=== PATIENT | male | born 1960 | race Caucasian/White ===

== ENCOUNTER 2018-02-13 22:36 | Inpatient (IN) | payer OTHER ==
[~2018-02-13] VITALS: Ht 193 cm; Wt 84.5 kg
[~2018-02-13 22:36] MED LIST: ADVIL PM CAPLE1 EACH PO; DEXAMETHASONE4 MG PO; IBUPROFEN600 MG PO; MAPAP325 MG PO; MOVANTIK12.5 MG; MOVANTIK25 MG PO; NEXIUM40 MG PO; OXYCODONE HCL E20 MG PO; OXYCODONE HCL E80 MG PO; OXYCODONE HCL30 MG PO; OXYCONTIN60 MG PO; SKELAXIN800 MG PO; STOOL SOFTENER1 EAC3 PO; TOPROL XL50 MG PO
--- NOTE | 2018-02-14 00:37 | NUR ---
PT ARRIVED TO ROOM 108 FROM ED. PT ABLE TO TRANSFER OVER TO THE HOSPITAL BED BY SELF. PT AND DAUGHTER WITH PT. PT HOLDING HIS LEFT SIDE OF HEAD HE GOT INTO BED.
--- NOTE | 2018-02-14 00:50 | NUR ---
PT ASSESSMENT COMPLETE. PT'S FAMILY IN ROOM COMPLETING HISTORY WITH SASH INSTALLER. PT RATING PAIN 7/10 TO HEAD/NECK/JAW. PRN PAIN MEDICATION TO BE ADMINISTERED. PT DENIES NAUSEA OR SOB. PT L EAR MISSING, SCAR TO L SIDE OF HEAD. OXYMASK IN PLACE FOR DESATURATIONS IN ED SECONDARY TO DILAUDID IV ADMINISTRATION PER RN. RASH NOTED TO BACK, PER PT DAUGHTER THIS RASH INITIATED FOLLOWING RADIATION IN 2018. PT PROVIDED WITH TISSUES, WATER, GARBAGE BAG. GARBAGE CAN PLACED NEXT TO BED PER PT REQUEST. PT DENIES FURTHER NEEDS AT THIS TIME. PT DOES NOT WISH TO TAKE HIS PANTS OFF AT THIS TIME. CALL LIGHT WITHIN REACH. PT EDUCATED REGARDING CALL LIGHT USE. UNDERSTANDING STATED.
--- NOTE | 2018-02-14 01:07 | NUR ---
provided patient with prn oxy for pain in head/face 08/17. Dr. Marina in room to assess patient.
--- NOTE | 2018-02-14 01:27 | NUR ---
in room discussing poc with pt. pt requests additional pain medication for 8/10 pain to face/neck/jaw. prn iv dilaudid administered. pt denies further needs at this time. call light within reach.
--- NOTE | 2018-02-14 02:25 | NUR ---
FENTANYL PATCH APPLIED ORDERED. PT STATES THAT PAIN IS WELL CONTROLLED AT THIS TIME. URINAL PROVIDED TO PT. EDUCATION REINFORCED REGARDING CALLING FOR ASSISTANCE IF PT WOULD LIKE TO GET UP TO USE THE BATHROOM. PT STATES UNDERSTANDING. CALL LIGHT WITHIN REACH.
--- NOTE | 2018-02-14 04:23 | NUR ---
medicated with dilaudid 1mg iv c/o face/jaw area. Pt awake, sitting up in bed
--- NOTE | 2018-02-14 05:06 | NUR ---
PT ASSESSMENT COMPLETE. PT RATES PAIN 5/10 AFTER PRN DILAUDID ADMINISTRATION. PT HANGING LLE OVER EDGE OF BED, STATES IT HELPS WITH SCIATIC PAIN. ENCOURAGED PT TO GET UP TO VOID WHILE ASSISTANCE IN ROOM. PT STATES "I ALREADY WENT". EDUCATION REINFORCED ON SAFETY, FALL PREVENTION, CALL LIGHT USE. PT STATES UNDERSTANDING. BED ALARM ACTIVATED AT THIS TIME. CALL LIGHT WITHIN REACH.
--- NOTE | 2018-02-14 08:02 | NUR ---
PT SITTING UP IN BED AWAKE. ASSISTED TO ORDER BREAKFAST. RATING LEFT SIDE OF HEAD/NECK/JAW 7/10 PAIN. MEDICATED WITH SCHEDULED OXYCONTIN. DENIES NAUSA OR OTHER CONCERNS. ALERT AND ORIENTED TO ALL. ASSESSEMENT COMPLETED. IV SL, FLUSHES WELL, DRESSING CDI. CALL LIGHT WITHIN REACH.
--- NOTE | 2018-02-14 09:50 | NUR ---
SPOKE WITH PATIENT, HIS AND DAUGHTER IN ROOM. PATIENT HAS NO AMBULATIONS ISSUES. THEY ALL INTEND FOR PATIENT TO RETURN HOME AT DISCHARGE. THEY KNOW OF NO BARRIERS TO SAFE DISCHARGE HOME. DISCUSSED PAIN MEDICATIONS AND WEAKNESS OR DIZZINESS AND POSSIBLY BEING OPEN TO CANE OR WALKER AT HOME. STATES THEY WILL GET A CANE. DISCUSSED TO BE SURE TO UNDERSTAND MEDS, SIDE EFFECTS AND ASK ANY QUESTIONS BEFORE DISCHARGE. WILL FOLLOW NEEDED.
--- NOTE | 2018-02-14 10:30 | NUR ---
PT MEDICATE WITH PO DILAUDID IN ADDITION TO IV DILAUDID PT REPORTS THAT HE IS CONT TO HAVE 7/10 PAIN. ATE VERY LITTLE OF BREAKFAST "BECAUSE IT HURTS TOO MUCH TO EAT." CALL LIGHT WITHIN REACH. AT BEDSIDE.
--- NOTE | 2018-02-14 11:36 | NUR ---
PT REPORTS "QUEEZINESS". MEDICATED WITH PRN IV ZOFRAN. PT SITTING UP IN BED WITH AT BEDSIDE. CALL LIGHT WITHIN REACH.
--- NOTE | 2018-02-14 12:16 | NUR ---
Patient has been awake and visting with family, call light in reach and fresh water given, refused a shower,
--- NOTE | 2018-02-14 12:45 | NUR ---
PT SITTING UP IN BED,PILLOW AROUND NECK-FAMILY AT BEDSIDE. PT VISIBLY IN PAIN AND MENTIONED THAT PAIN IS AN 8. DAUGHTER SHOWS GREAT CONCERN, PT ASKED THAT IF HE IS STILL HERE TODAY, HE WOULD LIKE THE COUNTER FORMER TO STOP BY. SHARED THIS WITH MIRIAN BAILON TO PASS ON. SHARED WITH JUAN MANUEL LOO REGARDING PT'S PAIN. I ALSO EXTENDED A BLESSING, WILL FOLLOW NEEDED
--- NOTE | 2018-02-14 13:15 | NUR ---
PT SITTING UP IN BED, DRINKING ENSURE. PT REPORTS NAUSEA RESOLVED. AT BEDSIDE. CALL LIGHT WITHIN REACH.
--- NOTE | 2018-02-14 14:16 | NUR ---
SPECIAL MACHINE OPERATOR IN TAKING VS, PT SITTING UP IN BED, PAIN BETTER-DOWN TO 5. TERRELL IN RM, FEELING BETTER ABOUT HIS PAIN CONTROL NOW. SHE MENTIONED THAT FR BHANDARI CAME BY, THAT SEEMED TO BE GOOD FOR THEM. WILL FOLLOW NEEDED
--- NOTE | 2018-02-14 14:20 | NUR ---
PT SLEEPING SOUNDLY. RESP EVEN AND UNLABORED. O2 SAT 94% ON RA. CALL LIGHT WITHIN REACH.
--- NOTE | 2018-02-14 14:46 | NUR ---
ACCESSED PORT PER JUAN MANUEL LOO REQUEST. USED STERILE TECHNIQUE AND PLACED WINDOW DRESSING ON IT. PT TOLERATED FAIRLY WELL, USED ETHYL-SPRAY TO NUMB SKIN. SALDANA BLOOD RETURN AND FLUSHES WELL. FLUSHED WITH 10ML NS.
--- NOTE | 2018-02-14 15:00 | NUR ---
RIGHT CHEST PORT ACCESSED BY VERONIQUE Castillo RN. FLUSHES WELL, GOOD BLOOD RETURN. DRESSING CDI. IV IN RIGHT HAND DC'D AT THIS TIME IT WAS VERY PAINFUL DURING FLUSHING. SITE WNL, CATH TIP INTACT. PT SITTING UP IN BED VISITING WITH . GIVEN FRESH ICE WATER. CALL LIGHT WITHIN REACH.
--- NOTE | 2018-02-14 17:35 | NUR ---
PT SITTING UP IN RECLINER UPON THIS RN ENTERING ROOM. TOOK A COUPLE BITES OF DINNER BUT STATES HE WOULDN'T BE ABLE TO EAT IT D/T THROAT PAIN. PT REPORTS TROUBLE SWALLOWING WITH THROAT PAIN, HACKING UP MUCOUS FREQUENTLY AND SPITTING IT OUT. GIVEN CEPOCOL LOZENGE AND MOUTHWASH PER PT REQUEST. PT ASSISTED BACK TO BED AND CHANGED FROM [facility] INTO HOSPITAL PJ PANTS. PT REPORTS HEAD, NECK, AND JAW PAIN 08/17, MEDICATED WITH 2MG IV DILAUDID ADMINISTERED THROUGH RIGHT CHEST PORT. PT GIVEN CLEAR ENSURE HE STATED THE REGULAR ENSURE WAS TOO THICK. AT BEDSIDE ASSISTING THIS RN WITH PT CARE, GETTING PT COMFORTABLE. SATTING 95% ON RA, CONT PULSE OX ON. CALL LIGHT WITHIN REACH.
--- NOTE | 2018-02-14 19:10 | NUR ---
BEDSIDE REPORT RECEIVED FROM OFFGOING RN. PAIN MEDICATINO BEING ADMINISTERED BY OFFGOING RN. PAIN MEDICATION SCHEDULE DISCUSSED WITH PT AND OFFGOING RN. PT STATES AGREEMENT WITH PLAN. DENIES FURTHER NEEDS AT THIS TIME. CALL LIGHT IN REACH. BED ALARM ACTIVE.
--- NOTE | 2018-02-14 19:16 | NUR ---
PT MEDICATED WITH IV DILAUDID PER REQUEST. SITTING UP IN BED DROWSY. REPORTS THAT CEPOCOL LOZENGE HELPED WITH SORE THROAT. BED ALARM ON. CALL LIGHT WITHIN REACH.
--- NOTE | 2018-02-14 19:20 | NUR ---
PT'S DAUGHTER IN ROOM TO SEE PT. BED ALARM DEACTIVATED.
--- NOTE | 2018-02-14 20:05 | NUR ---
PT UTILIZES CALL LIGHT, REQUESTING PRN PAIN MEDCIATION FOR 7/10 PAIN "TIGHTNESS" TO HEAD/NECK/JAW. PT HOLDING L NECK WHERE PAIN IS LOCATED. PT STATES "I JUST WANT TO GET SOME RELIEF". PRN PO DILAUDID ADMINISTERED. PT ASSESSMENT COMPLETE. CPOX IN PLACE. PT USING OXYMASK PRN. PT DENIES SOB OR [place]. PT ENCOURAGED TO CALL FOR ASSISTANCE GETTING OOB IF NEEDED. PT AGREES. PT DENIES FURTHER NEEDS AT THIS TIME. CALL LIGHT IN REACH. BED ALARM ACTIVATED.
--- NOTE | 2018-02-14 21:30 | NUR ---
PT UTILIZES CALL LIGHT, REQUESTS PRN PAIN MEDICATION. PT RATES PAIN 7/10 TO HEAD/NECK/JAW. STATES "IT'S PRETTY TIGHT". PT STATES TAHT PO DILAUDID HELPED "SOME". ICE/WARM COMPRESS PROVIDED. PT STATES, "I'LL TRY ANYTHING ONCE". 02 DECERASES TO 87% AFTER DILAUDID ADMINISTRATION. PT USING O2 APPROPRIATELY. DENIES FURTHER NEEDS AT THIS TIME. CALL LIGHT WITHIN REACH. BED ALARM ACTIVE.
--- NOTE | 2018-02-14 23:40 | NUR ---
PT REQUESTING ADDITIONAL PAIN MEDICATION. PT CONTINUES TO RATE PAIN /, DESCRIBES "TIGHTNESS". PT STATES HE HAS BEEN UNABLE TO SLEEP FOR MORE THAN "10 OR SO MINUTES AT A TIME". PT DENIES FURTHER NEEDS AT THIS TIME. CALL LIGHT WITHIN REACH. BED ALARM ACTIVE.
--- NOTE | 2018-02-15 00:32 | NUR ---
PULP PLANT SUPERVISOR IN PT'S ROOM TO RE-EVAL PAIN, PT LYING BED AWAKE. PT STATES THAT HE IS STILL HAVING 7/10 PAIN TO L NECK/HEAD, HE DESCRIBES TIGHTNESS/PRESSURE. PT REQUESTS PRN PAIN MEDCIATION. PO DILAUDID ADMINISTERED. PT DENIES FURTHER NEEDS AT THIS TIME. CALL LIGHT WITHIN REACH. BED ALARM ACTIVE.
--- NOTE | 2018-02-15 01:58 | NUR ---
PT UTILIZES CALL LIGHT, REQUESTS PRN PAIN MEDICATION. PT RATES PAIN 8/10 TO L NECK, REPORTS TIGHTNESS. STATES THAT PAIN IS CURRENTLY GETTING WORSE. PRN IV DILAUDID ADMINISTERED. PT DENIES FURTHER NEEDS AT THIS TIME. CALL LIGHT WITHIN REACH.
--- NOTE | 2018-02-15 03:55 | NUR ---
PT ASSESSMENT COMPLETE. PT RATING PAIN 8/10 AFTER PRN IV DILAUDID ADMINISTRATION X 2 HOURS PRIOR. ADDITIONAL PRN DOSE ADMINISTERED. PT ATTEMPTING TO STRETCH HIS JAW. PT CONTINUES TO DESCRIBE PAIN "TIGHT". STATES HE FEELS THOUGH IT IS HARD TO SWALL. PT ASSESSMENT UNCHANGED FROM PRIOR ASSESSMENT. PT DENIES FURTHER NEEDS AT THIS TIME. CALL LIGHT WITHIN REACH.
--- NOTE | 2018-02-15 04:21 | NUR ---
PRN PO DILAUDID ADMINISTERED. PT STATES THAT IV DILAUDID BROUGHT PAIN DOWN TO 5/10 FOR SHORT WHILE, BUT PAIN IS NOW BACK UP TO 7/10. PT ATTEMPTS TO USE DIFFERENT PILLOW AND READJUST THE BED TO SEE IF THIS WILL HELP WITH COMFORT, STATES IT DOES NOT HELP. PT DECLINES FURTHER NEEDS AT THIS TIME. CALL LIGHT WITHIN REACH.
--- NOTE | 2018-02-15 06:07 | NUR ---
PT AWAKE MOST OF NIGHT. SLEPT IN 10 MINUTE INCREMENTS ACCORDING TO PT. PRN PAIN MEDICATION REQUIRED AROUND THE CLOCK. LOWEST PAIN RATING 5/10, HIGHEST 8/10 TO NECK/HEAD/JAW. PT DESCRIBES TIGHTNESS. HEAT/ICE APPLICATION AND REPOSITIONING NOT EFFECTIVE IN RELIEVING PAIN S/SX. O2 PRN. CPOX IN PLACE. LOW URINE OUTPUT. INTAKE MINIMAL. PORT ACCESSED, HEP LOCKED. 1 PA.
--- NOTE | 2018-02-15 08:30 | NUR ---
ATTEMPTED TO DRAW BLOOD FROM RIGHT CHEST PORT, UNABLE TO GET BLOOD RETURN. HAD PT REPOSITION MULTIPLE TIMES, STAND UP, LIE DOWN, RAISE RIGHT ARM ABOVE HEAD ETC. WITH NO SUCCESS. HAD VERONIQUE CHARGE NURSE ALSO ASSESS SITE. DRESSING TAKEN DOWN AND ATTEMPTED TO REPOSITION VILLEGAS NEEDLE. REDRESSED WITH STERILE DRESSING. NOTIFIED DR. MAYFIELD TO RECIEVE ORDER FOR ALTEPLASE. PORT CONT TO FLUSH WELL BUT WILL NOT GIVE BLOOD RETURN. ABLE TO ADMINISTER IV DILAUDID AND LR BOLUS. NO SIGNS OF INFILTRATION NOTED.
--- NOTE | 2018-02-15 10:35 | NUR ---
PT MEDICATED WITH 2MG IV DILAUDID. CONSISTENTLY RATES PAIN 5-8/10. SITTING UP IN BED WITH EYES CLOSED, FACIAL GRIMACE. PT REPORTED THAT HE DIDN'T FEEL HUNGRY FOR BREAKFAST. DRINKING CLEAR ENSURE. DENIES NAUSEA OR SOB. STILL REPORTS THROAT DISCOMFORT, USING CEPACOL LOZENGES NEEDED. HACKING UP GREEN MODERATE AMOUNT OF GREEN MUCOUS AND SPITTING INTO A CUP. PT ALERT AND ORIENTED. CALL LIGHT WITHIN REACH.
--- NOTE | 2018-02-15 11:00 | NUR ---
FIRST DOSE OF ALTEPLASE ADMINISTERED. WILL REASSESS IN 30 MIN. PT SITTING UP IN BED RESTING WITH EYES CLOSED. DENIES NEEDS OR CONCERNS AT THIS TIME. CALL LIGHT WITHIN REACH.
--- NOTE | 2018-02-15 11:34 | NUR ---
UNABLE TO DRAW BLOOD FROM RIGHT CHEST IMPLANTED PORT AFTER 30 MIN OF ALTEPLACE ADMINISTRATION. WILL REASSESS IN 90 MIN. CALL LIGHT WITHIN REACH.
--- NOTE | 2018-02-15 11:43 | NUR ---
PT SITTING UP IN BED, TERRELL AT HIS SIDE. PAIN ON UPSWING, IV ALARM SOUNDING. PT ACCEPTED PRAYER SHAWL, HAD PRAYER WITH BOTH. GOOD VISIT, WILL FOLLOW NEEDED
--- NOTE | 2018-02-15 13:20 | NUR ---
STILL UNABLE TO DRAW BLOOD AFTER 2 HOURS OF ALTEPLASE ADMINISTRATION. RECIEVED ASSITANCE FROM [facility] NURSE WHO REPOSITIONED NEEDLE AND WAS ABLE TO OBTAIN GOOD BLOOD RETURN. SITE REDRESSED WITH STERILE TECHNIQUE. PORT NOW FLUSHING WELL WITH GOOD BLOOD RETURN. PT ATTEMPTED TO EAT SOME LUNCH BUT BECAME NAUSEATED. JUST TAKING SIPS OF WATER AND ENSURE. CALL LIGHT WITHIN REACH.
--- NOTE | 2018-02-15 14:12 | NUR ---
PATIENT IN PAIN ON LEFT SIDE OF NECK/FACE. HURTS TO EAT. DRINKS 3 ENSURES A DAY. ON A REGULAR DIET. WILL CONTINUE TO MONITOR.
--- NOTE | 2018-02-15 15:15 | NUR ---
PT MEDICATED WITH IV DILAUDID FOR 7/10 LEFT HEAD/NECK/JAW PAIN. PORT CONT TO FUNCTION WELL. CONT FLUIDS RUNNING WNL. DENIES OTHER NEEDS AT THIS TIME. CALL LIGHT WITHIN REACH.
--- NOTE | 2018-02-15 16:16 | NUR ---
MED REC COMPLETE
--- NOTE | 2018-02-15 16:38 | NUR ---
PT UP TO RESTROOM TO TAKE "BED BATH" WITH ASSISTANCE FROM . PO DILAUDID ADMINISTERED. LINENS CHANGED AND NEW GOWN.
--- NOTE | 2018-02-15 19:00 | NUR ---
RECEIVED PATIENT REPORT FROM JUAN MANUEL LOO. PATIENT JUST GOT 3MG IV DILAUDID FOR 7/10 PAIN. PATIENT'S DAUGHTER AT BED SIDE. WILL BE BACK TO PERFORM ASSESSMENT.
--- NOTE | 2018-02-15 21:15 | NUR ---
PATIENT HAVING 6-7/10 HEAD/JAW AND NECK PAIN. RIGHTCHEST PORT FLUSHED WITH SALINE ANDHEPARIN AND GIVEN 3ML IV DILAUDID. 7PM BROUGHT HIS PAIN DOWN TO ABOUT A 5 FOR AWHILE. SATS REMAIN 92-93% ON ROOM AIR WITH A HEART RATE OF 78. PATIENT'S WATER FULL. CALLLIGHT IN REACH. NO THER NEEDS AT THIS TIME.
--- NOTE | 2018-02-15 23:00 | NUR ---
PATIENT'S PAIN IS 6/10 AT THIS TIME. 3MG IV DILAUDID GIVEN.PATIENT HAS NOT NEEDED ANY PRN PO DILAUDID OF YET. HR AND SATS EMAIN STABLE. PATIENT GOING TO TRY AND GET SOME MORE SLEEP.
--- NOTE | 2018-02-15 23:58 | NUR ---
V/S AND I&O DONE AND CHARTED. PATIENT DID NOT ABLE TO SAVE HIS VOIDINGS HE STATED THAT HAS TO GO RIGHT AWAY, NO TIME TO USE THE URINAL..AND FLUSHES THE TOILET.
--- NOTE | 2018-02-16 00:05 | NUR ---
PATIENT RESTING QUIETLY, RESPIRATIONS REGULAR AND EVEN AT A RATE OF 18, EYES CLOSED AND SITTING IN BED IN A HIGH FOWLERS POSITION. HR AND O2 SATS REMAIN STABLE.
--- NOTE | 2018-02-16 01:05 | NUR ---
PATIENT'S HEAD PAIN IS DOING BETTER, 5/10 AT THIS TIME. ANOTHER 3MG OF IV DILAUDID GIVEN. PATIENT HAS BEEN WATCHING TV, AND IS GOING TO TRY AND GET SOME SLEEP NOW.
--- NOTE | 2018-02-16 03:05 | NUR ---
CHECKED IN WITH PATIENT AND HIS PAIN IN HEAD,NECK, AND JAW IS CURRENTLY AT A 6/10. HE SAYS HE HAS HAD TROUBLE TRYING TO FIND A COMFORTABLE POSITION TO LAY IN BED. 3MG IV DILAUDID GIVEN FOR HIS PAIN. SATS, HR, AND RESP RATE REMAIN STABLE.
--- NOTE | 2018-02-16 03:50 | NUR ---
PATIENT'S IV FLUID NEEDED CHANGED, PATIENT'S PAIN 5/10 WHICH IS AT HIS COMFORT LEVEL. WILL BE BACK TO SEE PATIENT AT 5AM UNLESS HE CALLS.
--- NOTE | 2018-02-16 05:15 | NUR ---
ENTERED PATIENT'S ROOM AND HIS EYES WERE CLOSED, BUT HE OPENED THEM SHORTLY AFTER I ENETERED THE ROOM. PAIN IS 5/10 AT THIS TIME AND WE ARE SWITHCHING TO PO DILAUDID OF WHICH HE GOT 24MG PO. HE GOT THREE TABS DOWN WITH SOME DIFFICULTY AND DIDN'T GET THE OTHER TABS DOWN UNTIL AFTER HE GOT HIS IV DEX. VS HAVE REMAINED STABLE THROUGH THE NIGHT.
--- NOTE | 2018-02-16 06:45 | NUR ---
PATIENT'S PAIN HAS BEEN FAIRLY WELL CONTROLLED THROUGH THE NIGHT. LAST DOSE WAS 24MG PO AND IT IS HOLDING HIS PAIN AT ABOUT A 5/10 WHICH HE IS COMFORTABLE WITH AT THIS TIME.
--- NOTE | 2018-02-16 07:46 | NUR ---
BEDSIDE REPORT RECEIVED FROM JESUS ZAMBRANO. WHITE BOARD UPDATED. WILL CONTINUE TO GIVE PAIN MEDS ORDERED AND NEEDED. CLEARED IV PUMP. D5LR @ 125 INFUSING. FENTANYL PATCHES ON BACK PER PATIENT REPORT.
--- NOTE | 2018-02-16 08:12 | NUR ---
DISCUSSED WITH PATIENT AND ABOUT KNOWN PLAN FOR CADD PUMP BASED ON PROGRESS NOTE FROM DR MAYFIELD ON 02/15/18. 24MG PO DILAUID PROVIDED AT 0800.
--- NOTE | 2018-02-16 10:13 | NUR ---
VS AND I&O'S TAKEN AND DOCUMENTED. PT HAS NO NEEDS AT THIS TIME. PT IS AWARE TO CALL IF HE NEEDS ANYTHING. CALL LIGHT IS IN REACH.
--- NOTE | 2018-02-16 10:30 | NUR ---
SPOKE WITH JIMMY AT [facility] [phone] (FAX [phone]) WHO IS REQUESTING UPDATED CLINICALS. DISCUSSED WITH HER THAT PLAN IS FOR PATIENT TO BE DISCHARGED WITH POSSIBLE CAD PUMP FOR PAIN MEDICATIONS. SHE WILL HAVE ONE OF THE [facility] CALL US.
--- NOTE | 2018-02-16 11:19 | NUR ---
PATIENT C/O JAW AND NECK PAIN. PROVIDED HOT AND COLD PACK. STAYING ON AN EVERY 3 HOUR SCHEDULE WITH ORAL DILAUDID AND USING IV DILAUDID FOR BREAKTHROUGH PAIN. PAIN CONTROLLED AT 5/10-- PATIENT'S COMFORTABLE LEVEL.
--- NOTE | 2018-02-16 11:20 | NUR ---
SPOKE WITH SHARRON [employer] [phone]. DISCUSSED NEEDING AUTHORIZATION FOR POSSIBLE PAIN PUMP NEED AFTER DISCHARGE. SHE WILL RESEARCH AND RETURN A CALL TO GIVE US INFORMATION ON WHO TO CONTACT TO SET THIS UP.
--- NOTE | 2018-02-16 13:10 | NUR ---
RECEIVED A PHONE CALL FROM [employer] [employer] WHO STATES TO USE A HOME HEALTH AGENCY, NAMING [facility] THEY WILL COVER. OTHER CHOICE IS ONE OUT OF [place] OR [facility] BOTH OF WHICH DO NOT SEE PATIENTS IN THIS AREA.
--- NOTE | 2018-02-16 13:20 | NUR ---
SPOKE WITH STEPHANE AT [facility]. SHE STATES SHE WILL DISCUSS WITH STAFF AND LET US KNOW IF THEY CAN COVER THIS NEED IN HOME HEALTH.
--- NOTE | 2018-02-16 13:33 | NUR ---
PT SITTING IN BED, FEELING BETTER THAN YESTERDAY. WHILE I WAS THERE, HE STATED THAT PAIN AND STIFFNESS WAS STARTING TO BUILD IN HIS NECK AND ALERTED THE RN. I EXTENDED A BLESSING, WILL FOLLOW NEEDED
--- NOTE | 2018-02-16 14:00 | NUR ---
RECEIVED A CALL FROM STEPHANE [facility] WHO STATES THEY CAN SEE THE PATIENT AT HIS HOME. THEY STATE TO SET UP THE PUMP WITH AN INFUSION COMPANY, THEY WILL NEED PARAMETERS FOR THE MEDICATION, AND IT MUST GO IN A PICC, PORT OR SUBCUTANEOUS ROUTE. CALLED [facility] AGAIN AND SPOKE WITH SHARRON REGARDING WHICH INFUSION COMPANY TO USE. SHE WILL LOOK INTO THIS AND CALL BACK.
--- NOTE | 2018-02-16 20:08 | NUR ---
PATIENT VS STABLE, NECK AND JAW PAIN IS 6/10. 4MG PO DILAUDID X6 TABS =24MG GIVEN FOR PAIN.
--- NOTE | 2018-02-16 22:16 | NUR ---
PATIENT'S PO MEDS AR NOT HOLDING HIS PAIN. CURRENT PAIN 8/10. PATIENT GIVEN 3MG IV DILAUDID FOR BREAK THROUGH PAIN. 4MG IV DEX ALSO GIVEN AND PORT HEPARIN FLUSHED PER PROTOCOL.
--- NOTE | 2018-02-16 22:46 | NUR ---
ROUNDED CHARGE. JUAN MANUEL LEE IN THE ROOM. PATIENT DENIES ANY NEEDS AT THIS TIME. CALL LIGHT IN REACH.
--- NOTE | 2018-02-16 23:26 | NUR ---
PATIENT'S PAIN HAS ONLY DECREASED TO 7/10 SO PATIENT'S 24MG PO DILAUDID GIVEN. PATIENT'S VS REMAIN STABLE. PATIENT GOING TO TRY AND SLEEP.
--- NOTE | 2018-02-17 01:19 | NUR ---
PATIENT RESTING QUIETLY IN HIGH FOWLERS POSITION EYES CLOSED RESPIRATIONS REGULAR AND EVEN. PULSE 54 AND O2 SATS 95% ON PULSE OX. CALL LIGHT IN REACH.
--- NOTE | 2018-02-17 02:49 | NUR ---
PATIENT AWAKE AND JAW/NECK PAIN ARE BACK TO 8/10 AND 24 MG PO DILAUDID GIVEN. AND ASSESSMENT COMPLETE.
--- NOTE | 2018-02-17 05:02 | NUR ---
PATIENT'S PAIN IS BOTHERING HIM 07/18 AND NOT DUE FOR PO MEDS YET. HE HAS HAD A HARD TIME GETTING COMFORTABLE AND WANTS SOME MORE PAIN CONTROL UNTIL HE CAN HAVE HIS NEXT PO DOSE. 3MG IV DILAUDID GIVEN. PATIENT GOING TO TRY AND REST NOW.
--- NOTE | 2018-02-17 05:55 | NUR ---
PATIENT'S PAIN AT 5/10 AND SAYS THIS HAS BEEN THE BEST HE HAS FELT FOR DAYS. 24MG PO DILAUDID GIVEN AND 4MG IV DEXAMETHASONE GIVEN AND PATIENT IS GOING TO TRY AND REST UNTIL HIS DAUGHTER COMES IN TO VISIT THIS MORNING. PATIENT'S PAIN HAS BEEN FAIRLY WELL CONTROLLED THROUGH THE NIGHT WITH PO PAIN MEDS WITH ONLY A COUPLE DOSES OF IV MEDS NEEDED FOR BREAKTHROUGH PAIN.
--- NOTE | 2018-02-17 07:10 | NUR ---
REPORT RECEIVED FROM JUAN MANUEL LEE. PT AWAKE AND FINSHING BREAKFAST FROM [facility], BROUGHT IN BY DAUGHTER. PT REPORTS 5/10 PAIN THAT IS TOLEARBLE AT THIS TIME. BED RAILS UP. CALL LIGHT WITHIN REACH.
--- NOTE | 2018-02-17 09:17 | NUR ---
MORNING ASSESSMENT AND MEDICATIONS DUE. PT RESTING ON RIGHT SIDE IN BED. PT AWAKENS TO MOVEMENT IN ROOM. ASSESSMENT DONE. PT REPORTS 5/10 PAIN THAT "SEEMS BETTER." PT ALSO REPORTS "RACING HEART" AND ASKS ABOUT TAKING HIS METOPROLOL. MD NOTIFIED. MEDICATION GIVEN. NEW FENTANYL PATCHES APPLIED TO BACK, OLD PATCHES REMOVED. PULSE OX READING OVER 92% ON ROOM AIR, HR 78. PT VISITING WITH FAMILY. NO ADDITIONAL REQUESTS OR COMPLAINTS AT THIS TIME.
[2018-02-17] MEDS ORDERED: HYDROMORPH SUB-Q (10:13)
--- NOTE | 2018-02-17 10:25 | NUR ---
THIS RN TO ROOM TO CHECK ON PT. PT REPORTS ONGOING 5/10 PAIN AND REQUESTS PAIN MEDICATION. SEE MAR FOR MEDIATION GIVEN. PT ENCOURAGED TO WALK BUT STATES HE IS "TOO TIRED" AGREES TO WALK "MAYBE AFTER LUNCH. BED RAILS UP. CALL LIGHT WITHIN REACH. PULSE OX READS 94% ON ROOM AIR, HR = 68.
--- NOTE | 2018-02-17 12:05 | NUR ---
NOON ASSESSMENT AND MEDICATION DUE. THIS RN TO BEDSIDE. PT REPORTS 5/10 PAIN, SEE MAR FOR MEDICATION GIVEN. ASSESSMENT DONE. PULSE OX MAINTAINING ABOVE 92% ON ROOM AIR, HR = 72. PT UPDATED ON MD DECISION TO HOLD METOPROLOL, PT VERBALIZES UNDERSTANDING AND STATES HE AGREES. PORT ASSESSED, WNL, BRISK BLOOD RETURN NOTED. PORT HEPARIN LOCKED PER PROTOCOL FOR PT TO TAKE A SHOWER. PT UP TO SHOWER. PT DEMONSTRATES USE OF CALL LIGHT IN BATHROOM. NO ADDITIONAL REQUESTS OR COMPLAINTS AT THIS TIME.
--- NOTE | 2018-02-17 12:43 | NUR ---
PT SITTING IN BED, FEELING BETTER THAN PREVIOUS. STRUGGLED TO SLEEP LAST NIGHT BUT HAS BEEN ABLE TO NAP. 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 HE WANTS TO SEE HIS G.SON GROW UP AND BE APART OF HIS LIFE. SHARED SOME SCRIPTURE, GOOD VISIT. EXTENDED A BLESSING, WILL CONTINUE TO FOLLOW
--- NOTE | 2018-02-17 12:48 | NUR ---
FAXED TO [facility] [phone] SENT ORDER/FACE SHEET/ED REPORTS/H&P/PROG NOTES. FAX CONFIRMATION RECEIVED 02/17/18 1236PM.
--- NOTE | 2018-02-17 13:07 | NUR ---
THIS RN TO ROOM TO CHECK ON PT. PT FINISHED WITH SHOWER, UP TO CHAIR, EATING LUNCH. LINENS CHANGED. MD TO BEDSIDE FOR ROUNDS. PT REPORTS 5/10 PAIN, "BECAUSE I'M EATING AND IT HURTS MY JAW." PT DENIES NEED FOR ADDITIONAL PAIN MEDICATION AT THIS TIME. HEPARIN REMOVED FROM PORT, FLUIDS RESTARED, RATE CHANGED TO 75 ML/HR PER MD ORDER. PT ENCORUAGED TO AMBULATE. PT STATES HE WILL WALK "SOON." CALL LIGHT WITHIN REACH. BED RAILS UP.
--- NOTE | 2018-02-17 13:22 | NUR ---
PT UP TO AMBULATE IN [place]. AMBULATING INDEPENDANTLY, PT STEADY ON FEET AND DENIES DIZZINESS/LIGHTHEADEDNESS
--- NOTE | 2018-02-17 14:09 | NUR ---
THIS RN TO ROOM TO CHECK ON PT. PT DENIES NEED FOR ADDITIONAL PAIN MEDICAITON AT THIS TIME. PT UP IN ROOM AND STATES HE HAS NO REQUESTS OR COMPLAINTS AT THIS TIME. CALL LIGHT WITHIN REACH.
--- NOTE | 2018-02-17 14:52 | NUR ---
PT REQUESTS ADDITIONAL PAIN MEDICATION FOR 5/10 PAIN. SEE MAR FOR MEDICATION GIVEN. PT RESTING IN BED. AND PT UPDATED ON PLAN OF CARE. PT AND VERBALIZE UNDERSTANDING. PT STATES HE HAS NO ADDITIONAL REQUESTS OR COMPLAINTS AT THIS TIME. CALL LIGHT WITHIN REACH.
--- NOTE | 2018-02-17 16:04 | NUR ---
PATIENT SITTING IN CHAIR. MOSTLY INDEPENDENT IN ROOM. CALL LIGHT IN REACH. NO FURTHER NEEDS AT THIS TIME.
--- NOTE | 2018-02-17 16:05 | NUR ---
RECIEVED A CALL FROM AMANDA ZAMBRANO ON [facility], STATING THAT [facility] HAD CALLED AND SAID THEY WOULD BE COURRIERING THE PUMP HERE AND THEY ALSO HAVE BEEN TALKING TO HOME HEALTH FROM [facility]. AMANDA STATED THAT THEY SAID IT WOULD BE HOOKED UP TO HIS PORT. I CALLED [facility] TO CLARIFY THESE ORDERS, SPOKE WITH PHARMACIST FABIAN AND HE SAID HE NEEDED TO SPEAK TO DR MAYFIELD. TRANSFERRED PHONE CALL TO DR MAYFIELD. FAXED CHART NOTES INCLUDING ORDERS FOR THE CADD PUMP AND H AND P, PROG NOTES. SPOKE AGAIN WITH DR MAYFIELD AND ASKED IF HE COULD WRITE A FACE TO FACE AND HE STATED HE WOULD.
--- NOTE | 2018-02-17 16:31 | NUR ---
PT CALL LIGHT ON. PT REQUESTS PAIN MEDICATIO FOR 6/10 PAIN AND TIGHTNESS IN LEFT EAR/SIDE OF FACE. SEE MAR FOR MEDICATION GIVEN. ASSESSMENT DONE. PT ENCORUAGED TO ORDER DINNER. ENSURE MILKSHAKE PROVIDED. PT VISITING WITH FRIEND, NO ADDITIONAL REQUESTS OR COMPLAINTS. BED RAILS UP. CALL LIGHT WITHIN REACH.
--- NOTE | 2018-02-17 18:03 | NUR ---
COREMAKER FLOOR PAIN MEDICATION STARTED WITH DAVIN, PHARMACIST AT BEDSIDE TO CONFIRM OPPORATION AND DOESAGING. PT REPORTS 6/10 PAIN BEFORE PUMP IS STARTED. CONTINIOUS PULSE OX IN PLACE, O2 SATURATION AT 96% ON ROOM AIR. HR = 73. PT ASKS QUESTIONS OF THIS RN AND DAVIN, PHARMCIST. PT VERBALIZES UNDERSTANDING OF COREMAKER FLOOR AND HOW TO USE BOLUS DOESING BUTTON. FENTANYL PATCHES REMOVED. PT DEMONSTRATES UNDERSTANDING AND STATES ALL HIS QUESTIONS HAVE BEEN ANSWERED. CALL LIGTH WITHIN REACH. PT VISITING WITH FRIEND. NO ADDITIONAL REQUESTS OR COMPLAINTS AT THIS TIME. BED RAILS UP. CALL LIGHT WITHIN REACH.
--- NOTE | 2018-02-17 19:06 | NUR ---
PT HERE FOR PAIN CONTROL RELATED TO CANCER. PT HAS MINIMAL APPITITE AND EATS MOSTLY SOFT FOODS. PO INTAKE ENCORUAGED. PT AWAITING HOME BOOM TENDER PUMP, HOPING IT WILL ARRIVE TOMORROW. NEW BOOM TENDER PUMP PLACED TODAY. PT USING CORRECTLY WITH ADEQUATE PAIN CONTROL. O2 SATURATIONS ABOVE 92% ON ROOM AIR. VOIDING QUANTIY SUFFICIENT. PT USES CALL LIGHT APPROPRIATLY.
--- NOTE | 2018-02-17 19:14 | NUR ---
IN ROOM FOR REPORT, PT IS AWAKE IN BED. HE RATES PAIN AT 4/10 AT THIS TIME. HE DENIES NEEDS. CALL LIGHT IS WITHIN REACH.
--- NOTE | 2018-02-17 19:45 | NUR ---
PTS ARRIVED. UPDATED BY THIS RN. PTS AND STATE ALL THEIR QUESTIONS HAVE BEEN ANSWERED AT THIS TIME. RUSTAM RN TO ANSWER ADDITIONAL QUESTIONS THEY ARRISE. PT VISITING WITH . BED RAILS UP. CALL LIGHT WITHIN REACH.
--- NOTE | 2018-02-17 20:20 | NUR ---
IN ROOM TO ASSESS PT AND ADMINISTER MEDICATIONS. HE REPORTS PAIN CONTROLLED AND DENIES SYMPTOMS. HE SAYS HE IS GETTING TIRED. HE DENIES FURTHER NEEDS. AT THIS TIME. CALL LIGHT IS WITHIN REACH.
--- NOTE | 2018-02-17 20:47 | NUR ---
CHARGE NURSE ROUNDING NOTE: SITTING UP IN BED, CAD PUMP INFUSING DILAUDID SC, STATED GOOD TO FAIR PAIN RELIEF. IVF INFUSING, CALL LIGHT AND FLUIDS AT BEDSIDE, NO OTHER REQUESTS
--- NOTE | 2018-02-17 21:00 | NUR ---
SITTING UP IN BED, WATCHING NETFLIZ IN PERSONAL TABLET, DENIES C/O PAIN OR ADVERSE REACTION TO CAD PUMP SITE. CPOX IN PLACE SATS 91% ROOM AIR
--- NOTE | 2018-02-17 21:32 | NUR ---
*TOTAL OF 1.3 ML USED FROM SCIENCE JOB TITLES PUMP= 13MG OF HYDROMORPHONE. PT HAS ONLY PUSHED BUTTON ONCE SINCE SCIENCE JOB TITLES STARTED.
--- NOTE | 2018-02-17 22:10 | NUR ---
PT REPORTS PAIN / RR 16 AND CPOX HAS NOT ALARMED. PT DENIES NEEDS AT THIS TIME.
--- NOTE | 2018-02-17 22:10 | NUR ---
VITALS AND I&OS DONE AND CHARTED. PT NEEDS NOTHING AT THIS TIME. BEDSIDE TABLE AND CALL LIGHT IN REACH.
--- NOTE | 2018-02-17 23:07 | NUR ---
AWAKE, WATCHING NET[employer]IX, DENIES C/O PAIN 'MY PAIN IS GOOD' STATES, CPOX SATS 92%. SITTING UP IN BED, IVF INFUSING CAD PUMP IN PLACE WITH GOOD PAIN RELIEF
--- NOTE | 2018-02-18 00:18 | NUR ---
PT IS AWAKE IN BED, HE STATES HIS PAIN IS WELL CONTROLLED AT THIS TIME. HE DENIES NEEDS AND CALL LIGHT IS WITHIN REACH.
--- NOTE | 2018-02-18 02:00 | NUR ---
*TOTAL VOLUME IN EDUCATION TECHNICIAN PUMP 2.7 ML 27MG TOTAL. PT ONLY PUSHED BUTTON ONCE SINCE START OF EDUCATION TECHNICIAN WHICH WAS AROUND 1800 02/17/18.
--- NOTE | 2018-02-18 06:15 | NUR ---
PT IS AWAKE IN BED, HE DENIES NEEDS AT THIS TIME. CALL LIGHT IS CLOSE,
--- NOTE | 2018-02-18 07:15 | NUR ---
*TOTAL DILAUDID GIVEN SINCE COOK MAYONNAISE STARTED IS 4.3ML/43 MG TOTAL THROUGH THE NIGHT. PT STATES HE DID NOT PUSH BUTTON ANYMORE, JUST THE ONE TIME AT THE BEGINNING.
--- NOTE | 2018-02-18 08:00 | NUR ---
RECEIVED REPORT AT 0700, FOUND PT IN BED. PT HAD NO NEEDS OR CONCERNS AT THAT TIME.
--- NOTE | 2018-02-18 10:00 | NUR ---
PT IS IN BED WATCHING TV. NO NEW CONCERNS AT THIS TIME. PAIN IS 4/10 WHICH IS TOLERABLE FOR PT. CHEST PORT FLUSHES WDL, PT IS EATING SOFT FOODS.. ALL LOBES ARE CLEAR, V/S ARE WDL, NO EDEMA NOTED.
--- NOTE | 2018-02-18 12:00 | NUR ---
PT IS UP IN BED. LUNCH SHOULD BE HERE ANYTIME. PT IS AAO X4, PAIN IS WELL CONTROLLED. NO NEW CONCERNS NOTED AT THIS TIME.
--- NOTE | 2018-02-18 12:41 | NUR ---
PT SITTING UP IN BED, WATCHING TV. HE IS ALERT, ORIENTED AND APPEARS TO BE FEELING MUCH BETTER-BETTER PAIN CONTROL. PUMP WILL ARRIVE LATER THIS AFTER- NOON, WITH DC TO FOLLOW. PT REQUESTED PRAYER, WILL FOLLOW NEEDED
[2018-02-18] MEDS ORDERED: DEXAMETHASONE4 MG PO (14:01)
[2018-02-18] MEDS ORDERED: NARCAN4 MG NAS (14:03)
--- NOTE | 2018-02-18 15:04 | NUR ---
PT STILL STATES THAT HIS PAIN IS UNDER CONTROL. PHARMACY WILL TALK TO PT ABOUT HIS PO OPIOID PAIN MEDICATIONS WHILE HE HAS THE SUBQ PUMP PRESENT. NO CHANGE IN STATUS FOR THIS PT WITH THE 2ND ASSESSMENT.
--- NOTE | 2018-02-18 15:58 | NUR ---
AFTER MANY PHONE CALLS BACK AND FORTH WITH SADA UGTIERREZ BEXAR AT [phone], THE CADD PUMP IS IN ROUTE TO THE HOSPITAL. FABIAN ZAMBRANO FROM OUR CLINIC IS GOING TO START IT AND EDUCATE THE PT ABOUT IT. HE TALKED WITH JESUS ZAMBRANO CCU/MS CARPENTER PACKING. I ALSO TALKED WITH JIMMY FROM [facility] THIS AM ABOUT THIS PT AND THE ISSUES WE ARE HAVING SHE STATED IF SHE COULD HELP TO JUST GIVE HER CALL AT [phone]. PT IS BEING KEPT INFORMED. WILL BE NOTIFIED WHEN THE PUMP GETS HERE.
--- NOTE | 2018-02-18 16:39 | NUR ---
V/S OVERALL WERE WDL ALL SHIFT. PAIN HAS BEEN WELL CONTROLLED WITH PUMP ALL SHIFT. NO NEW CONCERNS HAVE BEE NOTED THIS SHIFT. PUMP HAS JUST ARRIVED AND WILL BE INSERTED BY FABIAN ZAMBRANO, HE HAS BEEN NOTIFIED. PHARMACY TO DO EDUCATION ON ALL MEDS.
--- NOTE | 2018-02-18 17:56 | NUR ---
Sub Q access established using aseptic technique in Lt Lower ABD. Sbu Q cad pump infusion of hydromorphone 3 mg/hr started with 3 mg COUNTER INTELLIGENCE AGENT dose avalble every 15 min. Patient, patient's and patient's daughter educated on use of cad pump. Family aware they need to follow up in day-surgery every 7 days for injection sight change, and come to the hospital for any site access issues, All questions from family and patient answered. Family to follow up with [facility] home care for further education or pump issues. All supplies sent home with patient including second cassesset of hydromorphone and second cad pump. Gilberto from Pharmacy in room for medication education. DOCUMENTATION AND CARE COMPLETED BY FABIAN SALEH RN./ARLENE DWYER RN
--- NOTE | 2018-02-18 18:00 | NUR ---
CAPP PUMP HAS BEEN TURNED OFF. 37MG/ 3.7ML WERE CLEARED FROM THE PUMP AT THIS TIME. THE REST WILL BE WASTED IN THE PHARMACY WITH AMARI.
--- NOTE | 2018-02-18 18:29 | NUR ---
D/C V/S ARE WDL. PT COMPLAINS OF VERY LITTLE PAIN SINCE THE SUBQ PUMP INSERTION. PORT HAS BEEN HEP-LOCKED AND DE-ACCESSED. FABIAN ZAMBRANO DID EDUCATION ABOUT THE PUMP. THE COMPANY PROVIDING THE PUMP ALSO HAS A NURSE PRESENT WHO DID SOME INSTRUCTIONS OVER THE PHONE WITH THE FAMILY.
[2018-03-23] MEDS ORDERED: OMEPRAZOLE20 MG PO (10:51)
== END 2018-02-18 18:31 | disposition home health service (06) | DRG 948 ==
LOC: ED 22:36 → MS 22:37
PROVIDERS: ADMIT Internal Medicine
DX: G89.3 Neoplasm related pain (acute) (chronic) (principal); C79.89 Secondary malignant neoplasm of other specified sites; C76.0 Malignant neoplasm of head, face and neck; E86.0 Dehydration; Z87.891 Personal history of nicotine dependence; Z79.891 Long term (current) use of opiate analgesic; Z79.899 Other long term (current) drug therapy; Z66 Do not resuscitate
CPT/HCPCS: 36415; 80048; 94762; 96374; 96375; 96376; 99284-25; G0378; J1100; J1170; J1650; J2405; J2997; J7120